=== PATIENT | female | born 1985 | race Caucasian/White ===

== ENCOUNTER 2017-08-14 18:07 | Inpatient (IN) | payer MEDICAID ==
[~2017-08-14] VITALS: Ht 162.6 cm; Wt 87.0 kg
[~2017-08-14 18:07] MED LIST: IBUP-1223 PO; No meds per pt.; None per pt; OXYC-302 PO
[2017-08-14 19:14] LABS: CULTURE INDICATED? YES; MICROSCOPIC INDICATED
[2017-08-14 19:15] LABS: BASOPHILS # (AUTO) 0.07 x10^3/uL (0-0.1); BASOPHILS % (AUTO) 1 % (0-1); EOSINOPHILS # (AUTO) 0.18 x10^3/uL (0-0.4); EOSINOPHILS % (AUTO) 2 % (1-7); LYMPHOCYTES # (AUTO) 4.54 x10^3/uL (1-3.4); LYMPHOCYTES % (AUTO) 41 % (22-44); MD NO; MEAN CORPUSCULAR HEMOGLOBIN 27.5 pg (27.0-34.8); MEAN CORPUSCULAR HGB CONC 33.5 g/dL (32.4-35.8); MEAN CORPUSCULAR VOLUME 82.2 fL (80-100); MEAN PLATELET VOLUME 7.3 fL (7.4-10.4); MONOCYTES # (AUTO) 0.78 x10^3/uL (0.2-0.8); MONOCYTES % (AUTO) 7 % (2-9); NEUTROPHILS # (AUTO) 5.43 x10^3/uL (1.8-6.8); NEUTROPHILS % (AUTO) 49 % (42-75); PLATELET COUNT 428 x10^3/uL (130-400); RED CELL DISTRIBUTION WIDTH 13.9 % (9.6-15.2)
[2017-08-14 19:21] LABS: ALANINE AMINOTRANSFERASE 28 U/L (12-78); ALBUMIN 3.5 g/dL (3.4-5.0); ANION GAP 6 mmol/L (5-15); CHLORIDE 111 mmol/L (98-107); CREATININE 0.84 mg/dL (0.55-1.02)
[2017-08-14 19:27] LABS: ALKALINE PHOSPHATASE 68 U/L (45-117); BILIRUBIN,TOTAL 0.2 mg/dL (0.2-1.0); TOTAL PROTEIN 7.6 g/dL (6.4-8.2)
[2017-08-14] MEDS ORDERED: KETOROLAC 30 MG/1 ML IVPush ONE (20:30)
[2017-08-14] MEDS ORDERED: SODIUM CHLORIDE 0.9% 1,000ML IVBOLUS ONE (20:30)
[2017-08-14] MEDS ORDERED: CEFTRIAXONE PMX 2GM/50ML 50 ML IV ONE (20:30)
[2017-08-14] MEDS ORDERED: MORPHINE SULFATE 4 MG/ML, 1ML IVPush PRN (20:30)
[2017-08-14] MEDS ORDERED: KETOROLAC 30 MG/1 ML ONE (20:34)
[2017-08-14] MEDS ORDERED: MORPHINE SULFATE 4 MG/ML, 1ML ONE (20:35)
[2017-08-14] MEDS ORDERED: CEFTRIAXONE PMX 2GM/50ML 50 ML ONE (20:35)
[2017-08-14] MEDS ORDERED: HYDROmorphone 2 MG/ML, 1ML IVPush PRN (21:30)
[2017-08-14] MEDS ORDERED: HYDROmorphone 1 MG/ML, 1ML ONE (21:35)
[2017-08-14] MEDS ORDERED: FENTANYL PF 100 MCG/2ML ONE (22:00)
[2017-08-14] MEDS ORDERED: MIDAZOLAM 1 MG/ML, 2ML ONE (22:00)
[2017-08-14] MEDS ORDERED: GLYCOPYRROLATE 0.2MG/1ML, 5ML ONE (22:33)
[2017-08-14] MEDS ORDERED: DEXAMETHASONE 4 MG/ML, 1ML ONE (22:33)
[2017-08-14] MEDS ORDERED: SUCCINYLCHOLINE 20 MG/ML, 10ML ONE (22:33)
[2017-08-14] MEDS ORDERED: NEOSTIGMINE 1 MG/ML, 10ML ONE (22:33)
[2017-08-14] MEDS ORDERED: ROCURONIUM 10 MG/ML,10ML ONE (22:33)
[2017-08-14] MEDS ORDERED: PROPOFOL 10 MG/ML, 20ML ONE (22:33)
[2017-08-14] MEDS ORDERED: ONDANSETRON 2MG/ML, 2ML ONE (22:33)
[2017-08-14] MEDS ORDERED: ONDANSETRON 2MG/ML, 2ML IVPush PRN (23:30)
[2017-08-14] MEDS ORDERED: BISACODYL 10 MG SUPP PR PRN (23:30)
[2017-08-14] MEDS ORDERED: hydrALAzine 20 MG/ML, 1ML IVPush PRN (23:30)
[2017-08-14] MEDS ORDERED: DOCUSATE 100 MG CAPSULE PO PRN (23:30)
[2017-08-14] MEDS ORDERED: CEFTRIAXONE PMX 1GM/50ML 50 ML IV ONE (23:30)
[2017-08-14] MEDS ORDERED: POLYETHYLENE GLYCOL 17 GM PACKET PO PRN (23:30)
[2017-08-14] MEDS ORDERED: ACETAMINOPHEN 325 MG TABLET PO PRN (23:30)
[2017-08-14] MEDS ORDERED: morphine SULFATE 10 MG/ML, 1ML IVPush PRN (23:30)
[2017-08-14 23:45] VITALS: BP 115/71
[2017-08-14 23:55] LABS: HEMOGLOBIN A1C 5.7 % (4.2-6.3)
[2017-08-14 23:57] LABS: FREE T4 (FREE THYROXINE) 0.92 ng/dL (0.76-1.46); THYROID STIMULATING HORMONE 1.65 mIU/L (0.358-3.740)
[2017-08-15] MEDS: ONDANSETRON ODT 4 MG PO PRN ×3 (00:18→11:54)
[2017-08-15] MEDS: PROMETHAZINE 25 MG/ML, 1ML IM PRN ×2 (01:17→04:47)
[2017-08-15 03:31] VITALS: BP 108/60
[2017-08-15] MEDS: SODIUM CHLORIDE 0.9% 1,000 ML IV SCH ×2 (04:47→11:54)
[2017-08-15 05:07] LABS: BASOPHILS # (AUTO) 0.03 x10^3/uL (0-0.1); BASOPHILS % (AUTO) 0 % (0-1); EOSINOPHILS # (AUTO) 0.01 x10^3/uL (0-0.4); EOSINOPHILS % (AUTO) 0 % (1-7); LYMPHOCYTES # (AUTO) 1.24 x10^3/uL (1-3.4); LYMPHOCYTES % (AUTO) 13 % (22-44); MD NO; MEAN CORPUSCULAR HEMOGLOBIN 27.5 pg (27.0-34.8); MEAN CORPUSCULAR HGB CONC 33.1 g/dL (32.4-35.8); MEAN CORPUSCULAR VOLUME 83.1 fL (80-100); MEAN PLATELET VOLUME 7.5 fL (7.4-10.4); MONOCYTES # (AUTO) 0.18 x10^3/uL (0.2-0.8); MONOCYTES % (AUTO) 2 % (2-9); NEUTROPHILS # (AUTO) 7.86 x10^3/uL (1.8-6.8); NEUTROPHILS % (AUTO) 84 % (42-75); PLATELET COUNT 371 x10^3/uL (130-400); RED BLOOD COUNT 4.76 x10^6/uL (3.82-5.3); RED CELL DISTRIBUTION WIDTH 13.8 % (9.6-15.2)
[2017-08-15 05:10] LABS: ALBUMIN 3.3 g/dL (3.4-5.0); ANION GAP 6 mmol/L (5-15); CALCIUM 8.2 mg/dL (8.5-10.1); CHLORIDE 111 mmol/L (98-107)
[2017-08-15 05:16] LABS: ALANINE AMINOTRANSFERASE 216 U/L (12-78); ALKALINE PHOSPHATASE 75 U/L (45-117); BILIRUBIN,TOTAL 0.2 mg/dL (0.2-1.0); CHOL/HDL RATIO 4.1; CHOLESTEROL, TOTAL 156 mg/dL (140-239); CREATININE 0.78 mg/dL (0.55-1.02); HDL CHOL % 24 % (28-40); HDL CHOLESTEROL (DIRECT) 38 mg/dL (40-60); LDL CHOLESTEROL,CALCULATED 97 mg/dL (54-169); LDL/HDL RATIO 2.6 (0.5-3.0); TOTAL PROTEIN 7.2 g/dL (6.4-8.2); TRIGLYCERIDES 104 mg/dL (50-200); VLDL CHOLESTEROL 21 mg/dL (0-25)
[2017-08-15 07:05] VITALS: BP 112/80
[2017-08-15] MEDS: OXYcodone IR 5MG TABLET PO PRN ×4 (07:14→22:18)
[2017-08-15 15:45] VITALS: BP 114/74
[2017-08-15] MEDS ORDERED: CEFTRIAXONE PMX 2GM/50ML 50 ML IV SCH (20:00)
[2017-08-15 20:27] VITALS: BP 109/72
[2017-08-16 00:54] VITALS: BP 102/65
[2017-08-16] MEDS: OXYcodone IR 5MG TABLET PO PRN ×2 (03:31→07:32)
[2017-08-16 07:25] VITALS: BP 109/72
[2017-08-16 10:37] LABS: ALANINE AMINOTRANSFERASE 101 U/L (12-78); ALBUMIN 2.8 g/dL (3.4-5.0); ANION GAP 5 mmol/L (5-15); CALCIUM 7.8 mg/dL (8.5-10.1); CHLORIDE 111 mmol/L (98-107)
[2017-08-16 10:39] LABS: ALKALINE PHOSPHATASE 68 U/L (45-117); BILIRUBIN,TOTAL 0.2 mg/dL (0.2-1.0); TOTAL PROTEIN 6.4 g/dL (6.4-8.2)
[2017-08-16] MEDS ORDERED: DOCU-131 PO (12:49)
[2017-08-16] MEDS ORDERED: ACET325T14 PO (12:49)
[2017-08-16] MEDS ORDERED: OXYC5TAB3 PO (12:49)
== END 2017-08-16 14:13 | disposition home or self-care (01) | DRG 690 ==
LOC: OR 21:59 → EDIP 22:07 → 4NOR 23:39 → DCLOUNGE 08-16 13:58
PROVIDERS: ADMIT Internal Medicine; ATTEND Internal Medicine
PROC: 0T768DZ Dilation of Right Ureter with Intraluminal Device, Via Natural or Artificial Opening Endoscopic (ICD-10-PCS; principal; 2017-08-14 22:30)
DX: N13.6 Pyonephrosis (principal); Z90.49 Acquired absence of other specified parts of digestive tract; N39.0 Urinary tract infection, site not specified; Z98.51 Tubal ligation status
CPT/HCPCS: 36415; 74018; 74176; 76000; 80053; 80061; 81001; 83036; 83690; 83735; 84439; 84443; 84703; 85025; 87077; 87086; 87186; 96365; 96375; J0696; J1100; J1170; J1885; J2250; J2405; J2550; J2704; J2710; J3010; J3490; Q0162; C2617; J0330; J7030

== ENCOUNTER 2017-08-19 17:59 | Inpatient (IN) | payer MEDICAID ==
[~2017-08-19] VITALS: Ht 162.6 cm; Wt 85.5 kg
[~2017-08-19 17:59] MED LIST changes: +ACET325T14 PO; +DOCU-131 PO; +OXYC5TAB3 PO
[2017-08-19] MEDS ORDERED: SODIUM CHLORIDE FLUSH 10ML SYR IVF ONE (18:30)
[2017-08-19] MEDS ORDERED: KETOROLAC 30 MG/1 ML IVPush ONE (18:30)
[2017-08-19] MEDS ORDERED: MORPHINE SULFATE 4 MG/ML, 1ML IVPush PRN (18:30)
[2017-08-19] MEDS ORDERED: ONDANSETRON ODT 4 MG PO ONE (18:30)
[2017-08-19 19:10] LABS: ALBUMIN 3.5 g/dL (3.4-5.0); ANION GAP 8 mmol/L (5-15); CALCIUM 8.9 mg/dL (8.5-10.1); CHLORIDE 111 mmol/L (98-107); CREATININE 0.84 mg/dL (0.55-1.02)
[2017-08-19 19:15] LABS: MEAN CORPUSCULAR HEMOGLOBIN 27.6 pg (27.0-34.8); MEAN CORPUSCULAR HGB CONC 33.6 g/dL (32.4-35.8); MEAN CORPUSCULAR VOLUME 82.3 fL (80-100); MEAN PLATELET VOLUME 7.3 fL (7.4-10.4); PLATELET COUNT 473 x10^3/uL (130-400); RED BLOOD COUNT 4.94 x10^6/uL (3.82-5.3); RED CELL DISTRIBUTION WIDTH 14.3 % (9.6-15.2)
[2017-08-19 19:38] LABS: MD YES
[2017-08-19 19:42] LABS: <PLATELET ESTIMATE> INCREASED; <PLT MORPHOLOGY> NORMAL PLT MORPH; <RBC MORPHOLOGY> NORMAL; BASOS#(MANUAL) 0.12 x10^3/uL (0-0.1); BASOS% (MANUAL) 1 % (0-1); EOS#(MANUAL) 0.12 x10^3/uL (0.0-0.4); EOS% (MANUAL) 1 % (1-7); LYMPHS% (MANUAL) 37 % (22-44); MONOS#(MANUAL) 0.48 x10^3/uL (0.3-2.7); MONOS% (MANUAL) 4 % (2-9); SEG#(MANUAL) 6.78 x10^3/uL (1.8-6.8); SEGS% (MANUAL) 57 % (42-75)
[2017-08-19] MEDS ORDERED: MORPHINE SULFATE 4 MG/ML, 1ML ONE (19:57)
[2017-08-19] MEDS ORDERED: KETOROLAC 30 MG/1 ML ONE (19:57)
[2017-08-19] MEDS ORDERED: ONDANSETRON ODT 4 MG ONE (19:57)
[2017-08-19 20:16] LABS: MICROSCOPIC AUTO
[2017-08-19 20:17] LABS: CULTURE INDICATED? YES
[2017-08-19] MEDS ORDERED: CEFTRIAXONE PMX 1GM/50ML 50 ML ONE (20:28)
[2017-08-19] MEDS ORDERED: CEFTRIAXONE PMX 1GM/50ML 50 ML IV ONE (20:30)
[2017-08-19] MEDS ORDERED: ACETAMINOPHEN 325 MG TABLET PO PRN (22:00)
[2017-08-19] MEDS ORDERED: CEFTRIAXONE PMX 1GM/50ML 50 ML IV SCH (22:00)
[2017-08-19] MEDS ORDERED: morphine SULFATE 10 MG/ML, 1ML IVPush PRN (22:00)
[2017-08-19 22:37] VITALS: BP 109/70
[2017-08-20] MEDS: LACTATED RINGERS 1,000 ML IV SCH ×2 (01:42→07:59)
[2017-08-20] MEDS: HEPARIN 5,000 UNITS/ML, 1ML SQ SCH ×2 (01:42→10:00)
[2017-08-20] MEDS: OXYcodone IR 5MG TABLET PO PRN ×2 (01:42→07:59)
[2017-08-20 01:46] VITALS: BP 93/64
[2017-08-20 05:54] LABS: BASOPHILS # (AUTO) 0.15 x10^3/uL (0-0.1); BASOPHILS % (AUTO) 1 % (0-1); EOSINOPHILS # (AUTO) 0.34 x10^3/uL (0-0.4); EOSINOPHILS % (AUTO) 3 % (1-7); LYMPHOCYTES # (AUTO) 3.76 x10^3/uL (1-3.4); LYMPHOCYTES % (AUTO) 35 % (22-44); MD NO; MEAN CORPUSCULAR HEMOGLOBIN 27.4 pg (27.0-34.8); MEAN CORPUSCULAR HGB CONC 32.9 g/dL (32.4-35.8); MEAN CORPUSCULAR VOLUME 83.2 fL (80-100); MEAN PLATELET VOLUME 7.7 fL (7.4-10.4); MONOCYTES # (AUTO) 0.64 x10^3/uL (0.2-0.8); MONOCYTES % (AUTO) 6 % (2-9); NEUTROPHILS # (AUTO) 5.94 x10^3/uL (1.8-6.8); NEUTROPHILS % (AUTO) 55 % (42-75); PLATELET COUNT 369 x10^3/uL (130-400); RED BLOOD COUNT 4.41 x10^6/uL (3.82-5.3); RED CELL DISTRIBUTION WIDTH 14.2 % (9.6-15.2)
[2017-08-20 05:59] LABS: ANION GAP 9 mmol/L (5-15); CALCIUM 8.5 mg/dL (8.5-10.1); CHLORIDE 109 mmol/L (98-107); CREATININE 0.75 mg/dL (0.55-1.02)
[2017-08-20 06:58] VITALS: BP 96/64
[2017-08-20] MEDS ORDERED: POLYETHYLENE GLYCOL 17 GM PACKET PO SCH (09:00)
[2017-08-20] MEDS ORDERED: CIPR500T87 PO (12:04)
== END 2017-08-20 14:53 | disposition home or self-care (01) | DRG 690 ==
LOC: SUATTDRO 21:00 → ED 21:01 → EDIP 21:10 → 3NE 22:32
PROVIDERS: ADMIT Hospitalist; ATTEND Hospitalist
PROC: 0T9B70Z Drainage of Bladder with Drainage Device, Via Natural or Artificial Opening (ICD-10-PCS; principal; 2017-08-19)
DX: N13.6 Pyonephrosis (principal); R17 Unspecified jaundice; N20.2 Calculus of kidney with calculus of ureter
CPT/HCPCS: 36415; 74018; 76770; 80048; 81001; 82040; 83735; 84100; 84703; 85025; 87086; 96365; 96375; J0696; J1885; Q0162; J7120

== ENCOUNTER → 2019-05-20 | Outpatient (CLI) | payer MEDICAID ==
[~2019-05-20] MED LIST changes: +CIPR500T87 PO; +NONE PER PT
== END | disposition home or self-care (01) ==
LOC: CFH 13:42
PROVIDERS: ATTEND Nurse Practitioner Family
DX: N64.89 Other specified disorders of breast (principal); N64.4 Mastodynia
CPT/HCPCS: 76642; 77066; G0279

== ENCOUNTER → 2019-06-04 | Outpatient (CLI) | payer MEDICAID | END | disposition home or self-care (01) | LOC: CFH 09:57 | PROVIDERS: ATTEND Nurse Practitioner Family | DX: N64.4 Mastodynia (principal); R07.81 Pleurodynia; R10.10 Upper abdominal pain, unspecified; R10.12 Left upper quadrant pain; R19.02 Left upper quadrant abdominal swelling, mass and lump | CPT/HCPCS: 71250; 74150 ==

== ENCOUNTER 2019-07-27 12:02 | Emergency (ER) | payer MEDICAID ==
[~2019-07-27] VITALS: Ht 162.6 cm; Wt 89.4 kg
[2019-07-27] MEDS ORDERED: SODIUM CHLORIDE FLUSH 10ML SYR IVF ONE (13:00)
[2019-07-27] MEDS ORDERED: ONDANSETRON 2MG/ML, 2ML IVPush ONE (13:00)
[2019-07-27] MEDS ORDERED: HYDROmorphone 1 MG/ML, 1ML INJ IVPush PRN (13:00)
[2019-07-27] MEDS ORDERED: HYDROmorphone 1 MG/ML, 1ML INJ ONE (13:13)
[2019-07-27] MEDS ORDERED: ONDANSETRON 2MG/ML, 2ML ONE (13:13)
[2019-07-27 13:21] VITALS: BP 116/60
--- NOTE | 2019-07-27 13:21 | NUR ---
REPORT RECEIVED FROM GEMINI PETER. MEDICATED PER MAR
--- NOTE | 2019-07-27 13:25 | NUR ---
PT PRESENTS TO ED WITH C/O RIGHT FLANK AND RIGHT LOWER ABD PAIN X 3 DAYS. PT DENIES OTHER SYMPTOMS. PIV PLACED, LABS DRAWN. PT PROVIDE URINE SAMPLE, CLEAN CATCH. BP AND SPO2 MONITORS IN PLACE. CALL LIGHT IN REACH. PT TO BE MEDICATED AND UNDERGO CT SCAN.
[2019-07-27 13:28] LABS: MICROSCOPIC INDICATED
[2019-07-27 13:33] LABS: BASOPHILS # (AUTO) 0.05 x10^3/uL (0-0.1); BASOPHILS % (AUTO) 1 % (0-1); EOSINOPHILS % (AUTO) 0 % (1-7); LYMPHOCYTES # (AUTO) 1.69 x10^3/uL (1-3.4); LYMPHOCYTES % (AUTO) 16 % (22-44); MD NO; MEAN CORPUSCULAR HEMOGLOBIN 28.8 pg (27.0-34.8); MEAN CORPUSCULAR HGB CONC 33.4 g/dL (32.4-35.8); MEAN CORPUSCULAR VOLUME 86.3 fL (80-100); MEAN PLATELET VOLUME 7.1 fL (7.4-10.4); MONOCYTES % (AUTO) 4 % (2-9); NEUTROPHILS # (AUTO) 8.57 x10^3/uL (1.8-6.8); NEUTROPHILS % (AUTO) 80 % (42-75); PLATELET COUNT 408 x10^3/uL (130-400); RED BLOOD COUNT 4.76 x10^6/uL (3.82-5.3); RED CELL DISTRIBUTION WIDTH 12.5 % (9.6-15.2)
[2019-07-27 13:35] LABS: CULTURE INDICATED? NO
[2019-07-27 13:45] LABS: CHLORIDE 109 mmol/L (98-107)
[2019-07-27 13:54] LABS: ALANINE AMINOTRANSFERASE 143 U/L (12-78); ALBUMIN 3.7 g/dL (3.4-5.0); ALKALINE PHOSPHATASE 93 U/L (45-117); ANION GAP 6 mmol/L (5-15); BILIRUBIN,TOTAL 0.2 mg/dL (0.2-1.0); CALCIUM 8.7 mg/dL (8.5-10.1); CREATININE 0.83 mg/dL (0.55-1.02); TOTAL PROTEIN 8.2 g/dL (6.4-8.2)
--- NOTE | 2019-07-27 14:37 | NUR ---
BREAK RN. RENÉ BLANCA AT BEDSIDE FOR RECHECK.
== END 2019-07-27 15:32 | disposition home or self-care (01) ==
LOC: ED 12:20
DX: N20.0 Calculus of kidney (principal)
CPT/HCPCS: 36415; 74176; 80053; 81001; 84703; 85025; 96374; 96375; 99284; J1170; J2405